=== PATIENT | male | born 1955 | race African-American/Black ===

== ENCOUNTER 2024-09-25 16:58 | Inpatient (IN) | payer OTHER, MEDICARE ==
[~2024-09-25] VITALS: Ht 157.5 cm; Wt 45.4 kg
[2024-09-25 18:28] LABS: BASOPHILS % 0.2 % (0.0-1.0); EOSINOPHILS % 0.2 % (0.0-6.0); HEMATOCRIT 29.6 % (38.2-49.6); HEMOGLOBIN 9.5 g/dL (14.0-18.0); LYMPHOCYTES # (AUTO) 1.4 (1.0-3.2); LYMPHOCYTES % 16.1 % (18.0-39.1); MEAN CORPUSCULAR HEMOGLOBIN 32.8 pg (28-32); MEAN CORPUSCULAR HGB CONC 32.1 g/dL (31-35); MEAN CORPUSCULAR VOLUME 102.1 fL (81-99); MONOCYTES # (AUTO) 0.6 (0.2-0.8); MONOCYTES % 6.7 % (4.4-11.3); NEUTROPHILS # (AUTO) 6.5 (2.1-6.9); NEUTROPHILS % 76.3 % (38.7-80.0); PLATELET COUNT 187 x10e3/uL (140-360); RED CELL DISTRIBUTION WIDTH 16.8 % (11.7-14.4); WHITE BLOOD COUNT 8.52 x10e3/uL (4.8-10.8)
[2024-09-25 18:42] LABS: INR 1.03; PROTHROMBIN TIME 14.4 seconds (11.9-14.5)
[2024-09-25 18:43] LABS: PARTIAL THROMBOPLASTIN TIME 34.9 seconds (23.8-35.5)
[2024-09-25 18:49] LABS: ANION GAP 15.8 mmol/L (8-16); CALCIUM 9.3 mg/dL (8.4-10.2); CREATININE, SERUM 0.77 mg/dL (0.72-1.25); POTASSIUM 4.8 mmol/L (3.5-5.1)
[2024-09-25 19:06] LABS: BAND NEUTROPHILS % (MANUAL) 4 %; LYMPHOCYTES % (MANUAL) 11 % (19-48); METAMYELOCYTES % (MANUAL) 4 % (0-0); MONOCYTES % (MANUAL) 7 % (3.4-9.0); NEUTROPHILS % (MANUAL) 74 % (40-74)
[2024-09-25 19:10] LABS: PLATELET ESTIMATE ADEQUATE; PLATELET MORPHOLOGY COMMENT NORMAL; RBC MORPHOLOGY COMMENT NORMAL
[2024-09-25 19:11] LABS: ANISOCYTOSIS SLIGHT
[2024-09-25] MEDS: SODIUM CHLORIDE 0.9% 500ML 500 ML IV ONE (19:17)
[2024-09-25 19:39] VITALS: PULSE 109; RESP 19; O2SAT 100
[2024-09-25] MEDS: SODIUM CHLORIDE 0.9% 1000ML 1,000 ML IV SCH (21:43)
[2024-09-25 21:58] VITALS: TEMP 99.9
[2024-09-25 22:20] VITALS: PULSE 110; RESP 16
[2024-09-25] MEDS: Morphine 2mg Syringe 2 MG/ML SYR IV PRN (22:20)
[2024-09-25] MEDS: ONDANSETRON HCL INJ 2MG/ML 2ML 2 MG/ML VIAL IV PRN (22:20)
[2024-09-25] MEDS: ACETAMINOPHEN 325 MG TAB PO PRN (22:21)
[2024-09-25 22:29] VITALS: BP 104/64; PULSE 108; RESP 18; TEMP 97.9; O2SAT 98
[2024-09-25] MEDS ORDERED: LABETALOL HCL 5 MG/ML 20ML VIAL IV PRN (22:45)
[2024-09-25 23:00] VITALS: BP 109/64; PULSE 108; RESP 18; TEMP 97.9; O2SAT 98
[2024-09-25 23:05] VITALS: PULSE 110; RESP 20; O2SAT 98
[2024-09-26] VITALS (9 sets, daily range): BP systolic 99–112; BP diastolic 64–81; PULSE 85–105; RESP 18–20; TEMP 97.3–98.1; O2SAT 95–100
[2024-09-26 06:05] LABS: BASOPHILS % 0.3 % (0.0-1.0); EOSINOPHILS # (AUTO) 0.1 (0.0-0.4); EOSINOPHILS % 1.3 % (0.0-6.0); HEMATOCRIT 29.4 % (38.2-49.6); HEMOGLOBIN 9.1 g/dL (14.0-18.0); LYMPHOCYTES % 25.1 % (18.0-39.1); MEAN CORPUSCULAR VOLUME 106.5 fL (81-99); MONOCYTES # (AUTO) 0.7 (0.2-0.8); MONOCYTES % 8.6 % (4.4-11.3); NEUTROPHILS # (AUTO) 5.1 (2.1-6.9); NEUTROPHILS % 64.2 % (38.7-80.0); PLATELET COUNT 164 x10e3/uL (140-360); RED BLOOD COUNT 2.76 x10e6/uL (4.3-5.7)
[2024-09-26 06:45] LABS: ALBUMIN 2.2 g/dL (3.5-5.0); ALBUMIN/GLOBULIN RATIO 0.6 (0.8-2.0); ANION GAP 11.3 mmol/L (8-16); BILIRUBIN,TOTAL 0.6 mg/dL (0.2-1.2); CALCIUM 8.8 mg/dL (8.4-10.2); CREATININE, SERUM 0.69 mg/dL (0.72-1.25); POTASSIUM 4.3 mmol/L (3.5-5.1)
[2024-09-26 07:07] LABS: CHOL/HDL RATIO 3.9 (3.9-4.7); PHOSPHORUS 2.1 MG/DL (2.3-4.7)
[2024-09-26 07:30] LABS: FERRITIN 1082.3 ng/mL (21.81-274.66); FREE T4 (FREE THYROXINE) 1.15 ng/dL (0.8-1.8); THYROID STIMULATING HORMONE 1.958 uIU/mL (0.350-4.940)
[2024-09-26] MEDS ORDERED: FAMOTIDINE 20 MG TAB PO SCH (07:30)
[2024-09-26 07:44] LABS: MAGNESIUM 0.8 MG/DL (1.3-2.1)
[2024-09-26 07:53] LABS: ANISOCYTOSIS SLIGHT; EOSINOPHILS % (MANUAL) 1 % (0-7); HYPOCHROMASIA SLIGHT; LYMPHOCYTES % (MANUAL) 24 % (19-48); MONOCYTES % (MANUAL) 7 % (3.4-9.0); NEUTROPHILS % (MANUAL) 66 % (40-74); PLATELET ESTIMATE ADEQUATE; PLATELET MORPHOLOGY COMMENT NORMAL; POLYCHROMASIA FEW; REACTIVE LYMPHOCYTES 2
[2024-09-26] MEDS: FAMOTIDINE 20 MG TAB PO SCH (08:30)
[2024-09-26] MEDS: DOCUSATE SODIUM 100 MG CAP PO SCH (08:38)
[2024-09-26] MEDS: MAGNESIUM SULFATE 2GM/50ML 50 ML IV ONE ×2 (08:39→11:07)
[2024-09-26] MEDS: SODIUM PHOSPHATE 15 MMOL in SODIUM CHLORIDE 0.9% 250ML 250 ML IV ONE (12:34)
[2024-09-27] VITALS (10 sets, daily range): BP systolic 112–151; BP diastolic 68–94; PULSE 75–99; RESP 18–20; TEMP 97.6–98.9; O2SAT 97–100
[2024-09-27 06:27] LABS: BASOPHILS % 0.3 % (0.0-1.0); EOSINOPHILS # (AUTO) 0.1 (0.0-0.4); EOSINOPHILS % 1.7 % (0.0-6.0); HEMATOCRIT 28.3 % (38.2-49.6); HEMOGLOBIN 8.4 g/dL (14.0-18.0); LYMPHOCYTES # (AUTO) 1.2 (1.0-3.2); LYMPHOCYTES % 17.4 % (18.0-39.1); MEAN CORPUSCULAR HEMOGLOBIN 32.6 pg (28-32); MEAN CORPUSCULAR HGB CONC 29.7 g/dL (31-35); MEAN CORPUSCULAR VOLUME 109.7 fL (81-99); MONOCYTES # (AUTO) 0.5 (0.2-0.8); MONOCYTES % 7.4 % (4.4-11.3); NEUTROPHILS # (AUTO) 5.1 (2.1-6.9); NEUTROPHILS % 72.8 % (38.7-80.0); PLATELET COUNT 174 x10e3/uL (140-360); RED BLOOD COUNT 2.58 x10e6/uL (4.3-5.7); RED CELL DISTRIBUTION WIDTH 17.1 % (11.7-14.4); WHITE BLOOD COUNT 7.03 x10e3/uL (4.8-10.8)
[2024-09-27 06:57] LABS: ANION GAP 10.8 mmol/L (8-16); CALCIUM 8.4 mg/dL (8.4-10.2); CREATININE, SERUM 0.67 mg/dL (0.72-1.25); POTASSIUM 3.8 mmol/L (3.5-5.1)
[2024-09-27] MEDS ORDERED: GADOBENATE DIMEGLUMINE 1 ML IV ONE (11:09)
[2024-09-27] MEDS ORDERED: OLANZAPINE5 MG PO (15:05)
[2024-09-27] MEDS ORDERED: DOCUSATE SODIU100 MG PO (15:05)
[2024-09-27] MEDS ORDERED: CYCLOBENZAPRINE10 MG PO (15:05)
[2024-09-27] MEDS ORDERED: OXYCODONE HCL20 M1 PO (15:05)
[2024-09-27] MEDS ORDERED: STIVARGA40 MG PO (15:05)
[2024-09-27] MEDS ORDERED: FAMOTIDINE20 MG PO (15:05)
[2024-09-27] MEDS ORDERED: PROBIOTIC & AC1 EACH PO (15:05)
[2024-09-27] MEDS ORDERED: FINASTERIDE5 MG PO (15:05)
[2024-09-27] MEDS ORDERED: NEURONTIN300 MG PO (15:05)
[2024-09-27] MEDS ORDERED: LEVETIRACETAM500 MG PO (15:05)
[2024-09-27] MEDS ORDERED: LORAZEPAM2 MG/1 M1 PO (15:05)
[2024-09-27] MEDS ORDERED: MAGNESIUM OXID400 MG PO (15:05)
[2024-09-27] MEDS ORDERED: ASPIRIN81 MG PO (15:05)
[2024-09-27] MEDS ORDERED: FLOMAX0.4 MG PO (15:05)
[2024-09-27] MEDS ORDERED: ATORVASTATIN CA20 MG PO (15:05)
[2024-09-27 16:03] LABS: BILIRUBIN,URINE NEGATIVE (NEGATIVE); CLARITY,URINE TURBID (CLEAR); COLOR,URINE RED (YELLOW); GLUCOSE, URINE NEGATIVE (NEGATIVE); KETONES,URINE NEGATIVE (NEGATIVE); LEUKOCYTE ESTERASE ,URINE SMALL (NEGATIVE); NITRITE,URINE NEGATIVE (NEGATIVE); PH,URINE 6 (5 - 7); PROTEIN,URINE DIPSTICK >=300 (NEGATIVE); URINE UROBILINOGEN 0.2 mg/dL (0.2 - 1)
[2024-09-27] MEDS: POLYETHYLENE GLYCOL 3350 17 GM PACK PO PRN (16:07)
[2024-09-27 16:18] LABS: BACTERIA,URINE FEW /HPF; RBC,URINE >50 /HPF (0-5)
[2024-09-27] MEDS ORDERED: OXYCODONE HCL 20 MG TAB CR PO PRN (20:15)
[2024-09-27] MEDS ORDERED: LORAZEPAM INJ 2 MG/ML VIAL IV PRN (20:15)
[2024-09-27] MEDS ORDERED: CYCLOBENZAPRINE HCL 10 MG TAB PO PRN (20:15)
[2024-09-27] MEDS: GABAPENTIN 300 MG CAP PO SCH (21:56)
[2024-09-27] MEDS: TAMSULOSIN HCL 0.4 MG CAP PO SCH (21:57)
[2024-09-27] MEDS: HYDROCODONE/APAP 10MG-325MG TAB PO PRN (21:57)
[2024-09-27] MEDS: OLANZAPINE 5 MG TAB PO SCH (21:57)
[2024-09-28] VITALS (9 sets, daily range): BP systolic 101–130; BP diastolic 72–99; PULSE 56–120; RESP 16–20; TEMP 97.5–99.9; O2SAT 97–100
[2024-09-28] MEDS ORDERED: FAMOTIDINE 20 MG TAB PO SCH (09:00)
[2024-09-28] MEDS: ASPIRIN 81 MG CHEW TAB PO SCH (09:00)
[2024-09-28] MEDS ORDERED: DOCUSATE SODIUM 100 MG CAP PO SCH ×2 (09:00)
[2024-09-28] MEDS ORDERED: CEFPODOXIME PR200 MG PO (15:11)
[2024-09-28] MEDS ORDERED: BICALUTAMIDE50 MG PO (15:11)
[2024-09-28] MEDS: GENTAMICIN SULFATE 160 MG in SODIUM CHLORIDE 0.9% 100 ML IV SCH (15:50)
[2024-09-28] MEDS ORDERED: LIDOCAINE HCL 2% LOCAL INJ 5 ML SDV VIAL INJ ONE (16:31)
[2024-09-28] MEDS ORDERED: FENTANYL CITRATE/PF 100MCG/2 ML INJ ONE ×2 (16:31→17:10)
[2024-09-28] MEDS ORDERED: PROPOFOL IV EMULSION 10 MG/ML 20 ML VIAL ONE (16:31)
[2024-09-28] MEDS ORDERED: ONDANSETRON HCL INJ 2MG/ML 2ML 2 MG/ML VIAL ONE (17:31)
[2024-09-28] MEDS ORDERED: PHENAZOPYRIDINE HCL 100 MG TAB PO PRN (17:45)
[2024-09-28] MEDS: MEPERIDINE HCL INJ 25 MG/ML VIAL ONE (18:30)
[2024-09-28] MEDS: SENNA-S TABLET PO SCH (19:14)
[2024-09-28] MEDS: MAGNESIUM OXIDE 400 MG TAB PO SCH (19:14)
[2024-09-28] MEDS: FINASTERIDE 5 MG TAB PO SCH (19:14)
[2024-09-28] MEDS: LACTOBACILLUS ACIDOPHILUS CAPSULE PO SCH (19:14)
[2024-09-28] MEDS: ATORVASTATIN 20 MG TAB PO SCH (19:14)
[2024-09-28] MEDS: SOLIFENACIN SUCCINATE 5 MG TAB PO SCH (20:00)
[2024-09-28] MEDS: BICALUTAMIDE 50 MG TABLET PO SCH (21:39)
[2024-09-29] VITALS (9 sets, daily range): BP systolic 97–130; BP diastolic 59–83; PULSE 86–120; RESP 16–20; TEMP 97.7–99.9; O2SAT 94–100
[2024-09-29 06:52] LABS: BASOPHILS % 0.2 % (0.0-1.0); EOSINOPHILS # (AUTO) 0.1 (0.0-0.4); EOSINOPHILS % 1.2 % (0.0-6.0); HEMATOCRIT 24.4 % (38.2-49.6); LYMPHOCYTES # (AUTO) 1.4 (1.0-3.2); LYMPHOCYTES % 14.1 % (18.0-39.1); MEAN CORPUSCULAR HEMOGLOBIN 32.9 pg (28-32); MEAN CORPUSCULAR HGB CONC 31.6 g/dL (31-35); MEAN CORPUSCULAR VOLUME 104.3 fL (81-99); MONOCYTES # (AUTO) 0.5 (0.2-0.8); NEUTROPHILS # (AUTO) 7.8 (2.1-6.9); PLATELET COUNT 158 x10e3/uL (140-360); RED BLOOD COUNT 2.34 x10e6/uL (4.3-5.7); RED CELL DISTRIBUTION WIDTH 17.8 % (11.7-14.4); WHITE BLOOD COUNT 9.86 x10e3/uL (4.8-10.8)
[2024-09-29 06:58] LABS: HEMOGLOBIN 7.7 g/dL (14.0-18.0)
[2024-09-29 07:22] LABS: ANION GAP 13.1 mmol/L (8-16); CALCIUM 8.3 mg/dL (8.4-10.2); CREATININE, SERUM 0.78 mg/dL (0.72-1.25); POTASSIUM 4.1 mmol/L (3.5-5.1)
[2024-09-29 09:05] LABS: ANISOCYTOSIS SLIGHT; HYPOCHROMASIA SLIGHT; LYMPHOCYTES % (MANUAL) 11 % (19-48); MONOCYTES % (MANUAL) 4 % (3.4-9.0); NEUTROPHILS % (MANUAL) 85 % (40-74); PLATELET ESTIMATE ADEQUATE; PLATELET MORPHOLOGY COMMENT NORMAL
[2024-09-29 09:06] LABS: POLYCHROMASIA FEW
[2024-09-29] MEDS: ATORVASTATIN 20 MG TAB PO SCH (21:22)
[2024-09-30 03:00] VITALS: BP 136/86; PULSE 101; RESP 16; TEMP 97.5; O2SAT 99
[2024-09-30 05:30] VITALS: BP 136/86; PULSE 101; RESP 16; TEMP 97.5; O2SAT 99
[2024-09-30 06:17] LABS: BASOPHILS % 0.3 % (0.0-1.0); EOSINOPHILS # (AUTO) 0.1 (0.0-0.4); EOSINOPHILS % 1.9 % (0.0-6.0); LYMPHOCYTES # (AUTO) 1.2 (1.0-3.2); LYMPHOCYTES % 15.9 % (18.0-39.1); MEAN CORPUSCULAR HEMOGLOBIN 32.7 pg (28-32); MEAN CORPUSCULAR HGB CONC 30.8 g/dL (31-35); MEAN CORPUSCULAR VOLUME 106.2 fL (81-99); MONOCYTES # (AUTO) 0.5 (0.2-0.8); NEUTROPHILS # (AUTO) 5.5 (2.1-6.9); NEUTROPHILS % 74.4 % (38.7-80.0); RED BLOOD COUNT 2.26 x10e6/uL (4.3-5.7); RED CELL DISTRIBUTION WIDTH 17.8 % (11.7-14.4); WHITE BLOOD COUNT 7.43 x10e3/uL (4.8-10.8)
[2024-09-30 06:20] LABS: HEMOGLOBIN 7.4 g/dL (14.0-18.0); PLATELET COUNT 145 x10e3/uL (140-360)
[2024-09-30 06:52] LABS: ANION GAP 13.9 mmol/L (8-16); CALCIUM 8.6 mg/dL (8.4-10.2); CREATININE, SERUM 0.76 mg/dL (0.72-1.25); POTASSIUM 3.9 mmol/L (3.5-5.1)
[2024-09-30 07:08] LABS: MAGNESIUM 0.9 MG/DL (1.3-2.1)
[2024-09-30 07:45] VITALS: PULSE 89; RESP 16; O2SAT 96
[2024-09-30 08:19] VITALS: BP 132/81; PULSE 103; RESP 18; TEMP 97.9; O2SAT 99
[2024-09-30 09:00] VITALS: BP 132/81; PULSE 103; RESP 18; TEMP 97.9; O2SAT 99
[2024-09-30] MEDS ORDERED: VESICARE5 MG PO (10:56)
== END 2024-09-30 11:42 | disposition home health service (06) | DRG 987 ==
LOC: ER 18:01 → ERHOLD 21:10 → MED/SURG3 22:44
PROVIDERS: ADMIT Internal Medicine; ATTEND Internal Medicine
PROC: BT161ZZ Fluoroscopy of Right Ureter using Low Osmolar Contrast (ICD-10-PCS; 2024-09-28)
PROC: BT101ZZ Fluoroscopy of Bladder using Low Osmolar Contrast (ICD-10-PCS; 2024-09-28)
PROC: 02HV33Z Insertion of Infusion Device into Superior Vena Cava, Percutaneous Approach (ICD-10-PCS; principal; 2024-09-28 16:35)
PROC: 0T768DZ Dilation of Right Ureter with Intraluminal Device, Via Natural or Artificial Opening Endoscopic (ICD-10-PCS; 2024-09-28 16:35)
PROC: 0VB03ZX Excision of Prostate, Percutaneous Approach, Diagnostic (ICD-10-PCS; 2024-09-28 16:35)
DX: C61 Malignant neoplasm of prostate (principal); E43 Unspecified severe protein-calorie malnutrition; N13.6 Pyonephrosis; D62 Acute posthemorrhagic anemia; C79.51 Secondary malignant neoplasm of bone; Z68.1 Body mass index [BMI] 19.9 or less, adult; Z16.12 Extended spectrum beta lactamase (ESBL) resistance; E87.1 Hypo-osmolality and hyponatremia; B96.20 Unspecified Escherichia coli [E. coli] as the cause of diseases classified elsewhere; D63.0 Anemia in neoplastic disease; R31.0 Gross hematuria; N40.1 Benign prostatic hyperplasia with lower urinary tract symptoms; T83.031A Leakage of indwelling urethral catheter, initial encounter; R33.8 Other retention of urine; N39.498 Other specified urinary incontinence; N31.9 Neuromuscular dysfunction of bladder, unspecified; M54.9 Dorsalgia, unspecified; E78.5 Hyperlipidemia, unspecified; G40.909 Epilepsy, unspecified, not intractable, without status epilepticus; Y84.6 Urinary catheterization as the cause of abnormal reaction of the patient, or of later complication, without mention of misadventure at the time of the procedure; Z99.3 Dependence on wheelchair; Z79.82 Long term (current) use of aspirin; Z85.038 Personal history of other malignant neoplasm of large intestine; Z85.05 Personal history of malignant neoplasm of liver; Z92.21 Personal history of antineoplastic chemotherapy
CPT/HCPCS: 36415; 36569; 51703; 71045; 72158; 74176; 74420; 76872; 76998; 80048; 80053; 80061; 81001; 82607; 82728; 82746; 83036; 83540; 83735; 84100; 84439; 84443; 84466; 85025; 85045; 85610; 85730; 87086; 87186; 88305; 93005; 94799; 99285; C2617; J0696; J1580; J2003; J2175; J2270; J2405; J2543; J3475; J7030; J7040; J7050